=== PATIENT | female | born 1985 | race Caucasian/White ===

== ENCOUNTER 2019-06-27 12:42 | Emergency (ER) | payer OTHER ==
[~2019-06-27] VITALS: Ht 154.9 cm; Wt 67.6 kg
[2019-06-27] MEDS ORDERED: PROTONIX 20 MG20 MG PO (14:05)
[2019-06-27 14:30] LABS: URINE BILIRUBIN NEGATIVE (Negative); URINE BLOOD 2+ (Negative); URINE CLARITY CLOUDY; URINE COLOR YELLOW; URINE GLUCOSE-RANDOM* NEGATIVE (Negative); URINE KETONES NEGATIVE (Negative); URINE LEUKOCYTES-REFLEX NEGATIVE (Negative); URINE NITRITE-REFLEX NEGATIVE (Negative); URINE PROTEIN (DIPSTICK) NEGATIVE (Negative); URINE SPECIFIC GRAVITY 1.025 (1.005-1.035)
[2019-06-27 14:39] LABS: AMORPHOUS URATES Many /LPF (None Seen); CASTS None Seen /LPF (None Seen); SQUAMOUS 0-3 Few /LPF (0-3); URINE RBC 3-10 Few /HPF (0-2); URINE WBC-REFLEX None Seen /HPF (0-5)
[2019-06-27 14:43] LABS: ABSOLUTE NEUTROPHILS 11.9 thou/uL (1.4-8.2); BASOPHILS 0.3 % (0.0-2.0); EOSINOPHILS 0.1 % (0.0-3.0); HEMATOCRIT 40.4 % (37.0-47.0); HEMOGLOBIN 13.2 gm/dL (12.0-15.0); LYMPHOCYTES 8.1 % (24.0-44.0); MCH 28.7 pg (26.0-34.0); MCHC 32.7 g/dL (28.0-37.0); MCV 87.8 fL (80.0-100.0); MONOCYTES 4.9 % (1.0-8.0); PLATELET COUNT 434 thou/uL (150-400); POLYS 86.6 % (36.0-66.0); RDW 13.2 % (10.5-14.5); WBC 13.8 thou/uL (4.0-11.0)
[2019-06-27 14:49] LABS: CREATININE 0.7 mg/dL (0.6-1.0); POTASSIUM 3.4 mmol/L (3.5-5.1)
[2019-06-27 14:56] LABS: ALBUMIN 3.9 g/dL (3.4-5.0); DIRECT BILIRUBIN 0.6 mg/dL (<0.1-0.3)
[2019-06-27] MEDS ORDERED: NORCO 5-325 TA1 EAC1 PO (17:30)
[2019-06-27] MEDS ORDERED: AUGMENTIN 875-1 EACH PO (17:30)
[2019-06-27] MEDS ORDERED: ONDANSETRON ODT8 MG PO (17:30)
[2019-06-27 19:04] VITALS: BP 150/90
[2019-06-28 07:09] LABS: HAV IgM AB (ANTI-HAV IgM) Negative (Negative); HEPATITIS B SURFACE AG Negative (Negative); HEPATITIS C VIRUS AB 0.1 (0.0-0.9)
--- NOTE | 2019-06-28 08:35 | EKG ---
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 : 1985 Requested By: Juan Pablo Jaramillo Order Number: [id number] MD: Layo Rosales Measurements Intervals [place] Rate: 78 P: -25 TX: 147 QRS: -28 QRSD: 98 T: -26 QT: 409 QTc: 466 Interpretive Statements Sinus rhythm Probable left atrial enlargement Borderline left axis deviation Borderline T abnormalities, inferior leads No previous ECG available for comparison Electronically Signed On 06-28-2019 8:35:06 CDT by Layo Rosales [email or web address] <ELECTRONICALLY SIGNED> By: Layo Rosales MD 06/28/19 0835 D: [id number] 50 Layo Rosales MD /MELONIE
== END 2019-06-27 19:05 | disposition home or self-care (01) ==
LOC: ER 12:42
PROVIDERS: Emergency Medicine
DX: K80.10 Calculus of gallbladder with chronic cholecystitis without obstruction (principal); K21.9 Gastro-esophageal reflux disease without esophagitis

== ENCOUNTER 2019-07-14 07:37 | Day surgery (SDC) | payer OTHER ==
[~2019-07-14] VITALS: Ht 154.9 cm; Wt 65.8 kg
[~2019-07-14 07:37] MED LIST: AUGMENTIN 875-1 EACH PO; NORCO 5-325 TA1 EAC1 PO; ONDANSETRON ODT8 MG PO; PROTONIX 20 MG20 MG PO
[2019-07-14 08:53] VITALS: BP 137/93
[2019-07-14] MEDS ORDERED: ZOFRAN 4 MG ORAL4 MG DISSOLVE (10:58)
[2019-07-14] MEDS ORDERED: OXYCODONE HCL 55 MG PO (10:58)
[2019-07-14] MEDS ORDERED: MIRALAX17 GM PO (10:58)
[2019-07-14] MEDS ORDERED: IBUPROFEN 200200 M1 PO (10:58)
[2019-07-14] MEDS ORDERED: COLACE 100 MG100 MG PO (10:58)
[2019-07-14] MEDS ORDERED: ACETAMINOPHEN325 M1 PO (10:58)
[2019-07-14 11:18] VITALS: BP 137/93
--- NOTE | 2019-07-18 17:06 | PATH ---
[facility] [address] [place] [address] PATHOLOGY RPT PROCEDURE Name: ELIZABETH ZELAYA Room #: DEP [facility] M.R.#: [id number] Admission: 07/14/19 Date of : 89 Discharge: 07/14/19 Report #: [id number] Path Case #: [id number] [facility] Accession Number: [id number] . 01 Material submitted: . gallbladder - GALLBLADDER . 01 Clinical history: . Cholecystitis . 02 Diagnosis: Gallbladder, cholecystectomy: - Mild chronic cholecystitis. - Cholelithiasis. (IUV:edgard; 07/18/2019) S 07/18/2019 1251 Local . 02 Electronically signed: . Jess Clifton MD, Pathologist NPI- [id number] . 01 Gross description: . Received in formalin labeled "Parminder, Merryll, gallbladder," is an intact, turgid gallbladder measuring 7.0 x 2.6 x 2.6 cm in greatest dimensions. The serosal surface is smooth to shaggy, pale machuca-lopez to dark green, focally hemorrhagic and partially adipose-covered in appearance. Opening the specimen reveals a gallbladder lumen brimming with tenacious dark green bile and dark lopez multifaceted calculi ranging from 0.1 to 0.9 cm in maximum dimension. The mucosal surface is velvety and dark green in appearance, measuring 0.1 cm in thickness with an average gallbladder wall thickness of 0.1 cm. No polyps or nodules are identified grossly. Engineer Technician sections of the infundibulum, body and fundus are submitted in cassette A1. (DAC; 07/15/2019) XDC/XDC 07/15/2019 0926 Local . 02 Pathologist provided ICD-10: K80.10 . 02 CPT . 405691 Specimen Comment: A courtesy copy of this report has been sent to [phone] Specimen Comment: [phone] Specimen Comment: Report sent to / DR MAN Performed at: 01 [place] [address] PATHOLOGY RPT PROCEDURE Name: ELIZABETH ZELAYA Room #: DEP [facility] M.R.#: [id number] Admission: 07/14/19 Date of : 89 Discharge: 07/14/19 Report #: [id number] Path Case #: [id number] [address] [facility] [address], [place] [id number] MD Nolan Bates MD Phone: [phone] Performed at: [address] [id number] MD Jess Clifton MD Phone: [phone]
== END 2019-07-14 13:05 | disposition home or self-care (01) ==
LOC: OR 07:37 → TBA 07:44 → OR 11:34
DX: K80.10 Calculus of gallbladder with chronic cholecystitis without obstruction (principal); K21.9 Gastro-esophageal reflux disease without esophagitis; Z98.890 Other specified postprocedural states; Z79.899 Other long term (current) drug therapy
CPT/HCPCS: 50010; 50101; 50249; 50411; 50555; 50558; 51489; 52265; 52266; 53307; 53310; 53312; 54022; 54118; 55245; 56462; 56525; 56526; 56674; 62110; 62900; 70005

== ENCOUNTER 2019-07-18 18:53 | Inpatient (IN) | payer OTHER ==
[~2019-07-18] VITALS: Ht 152.4 cm; Wt 64.3 kg
[~2019-07-18 18:53] MED LIST changes: +ACETAMINOPHEN325 M1 PO; +COLACE 100 MG100 MG PO; +IBUPROFEN 200200 M1 PO; +MIRALAX17 GM PO; +OXYCODONE HCL 55 MG PO; +ZOFRAN 4 MG ORAL4 MG DISSOLVE
[2019-07-18 19:10] VITALS: BP 119/85
[2019-07-18 19:28] LABS: URINE BLOOD 3+ (Negative); URINE CLARITY CLEAR; URINE COLOR YELLOW; URINE GLUCOSE-RANDOM* NEGATIVE (Negative); URINE KETONES 2+ (Negative); URINE LEUKOCYTES-REFLEX NEGATIVE (Negative); URINE NITRITE-REFLEX NEGATIVE (Negative); URINE PROTEIN (DIPSTICK) TRACE (Negative)
[2019-07-18 19:29] LABS: ICTOTEST (BILI CONFIRMATORY) Negative (Negative); URINE BILIRUBIN NEGATIVE (Negative)
[2019-07-18 19:39] LABS: BACTERIA-REFLEX 1-9 Few /HPF (None Seen); CASTS None Seen /LPF (None Seen); CRYSTALS None Seen /LPF (None Seen); SQUAMOUS 0-3 Few /LPF (0-3); URINE RBC >20 Many /HPF (0-2); URINE WBC-REFLEX None Seen /HPF (0-5)
[2019-07-18 20:43] LABS: ABSOLUTE NEUTROPHILS 10.4 thou/uL (1.4-8.2); BASOPHILS 0.8 % (0.0-2.0); HEMATOCRIT 37.4 % (37.0-47.0); HEMOGLOBIN 12.2 gm/dL (12.0-15.0); LYMPHOCYTES 13.9 % (24.0-44.0); MCH 28.3 pg (26.0-34.0); MCHC 32.6 g/dL (28.0-37.0); MCV 86.6 fL (80.0-100.0); MONOCYTES 7.5 % (1.0-8.0); PLATELET COUNT 470 thou/uL (150-400); POLYS 76.8 % (36.0-66.0); RBC 4.32 mil/uL (4.20-5.00); RDW 13.4 % (10.5-14.5); WBC 13.5 thou/uL (4.0-11.0)
[2019-07-18 20:49] LABS: CALCIUM 9.6 mg/dL (8.5-10.1); CREATININE 0.7 mg/dL (0.6-1.0)
[2019-07-18 20:55] LABS: ALBUMIN 3.3 g/dL (3.4-5.0); TOTAL BILIRUBIN 1.1 mg/dL (<0.1-1.0); TOTAL PROTEIN 8.1 g/dL (6.4-8.2)
[2019-07-18 22:57] VITALS: BP 133/91
[2019-07-18 23:20] VITALS: BP 153/93
--- NOTE | 2019-07-19 04:25 | NUR ---
PT ADMITTED IN THE UNIT AT 2310 WITH C/O OF ETIENNE ABD RADIATING TO THE LEFT SIDE OF THE BACK AND SHOULDER FROM THE ER.PT IS O/A X4.PT IS UP AD DONYA.PT HAS 4 LAPCHOLE SITES AFTER LAP ROSINA ON THURSDAY.PT HAD NAUSEA WITH NO VOMITING AND ISSUES WITH GAS AND BLOATING AFTER SURGERY.PT IS VERY COORERATIVE.PT NPO FROM MIDNIGHT FOR POSSIBLE TESTING THIS MORNING.PT HAD LOW POTASSIUM IF 3.0 [address] WITH 1BAG OF POTASSIUM 20MEG ONETIME.IV ACCESS ON RAC SL.PT C/O OF PAIN AND DR TODD PAGE X3 WITH NO RETURN AT THIS MOMENT.CONTINUE TO MONITOR TILL EOS
--- NOTE | 2019-07-19 06:42 | NUR ---
PT COMPLAINED OF PAIN THROUGHOUT THE NIGHT.DR TODD PAGED 4TIMES AND REPONDED AT ABOUT 0615 .DR WALLIS PUT IN ORDER FOR PAIN MEDS AND ALSO SAW THE PT.
[2019-07-19 07:44] VITALS: BP 141/88
[2019-07-19 13:59] VITALS: BP 133/90
[2019-07-19 19:19] VITALS: BP 136/99
--- NOTE | 2019-07-19 19:23 | NUR ---
Assumed pt care this am, vs signs stable. HIDA scan done today, toradol on hold due to the contrast. Pain is managed with medication though partial reflief has been noted. Pt is still on clear liquids will progress once pt has a bm. Seen by Dr. Collins Mg Citrate given to promote bm, though nuasea has been noted, relief was acheived when zofran was given. 4 lap sites intact with no drainage. POC followed, monitored and visited often due to pain and nausa. Endorsed to the night nurse. SDC's on
[2019-07-19 23:43] VITALS: BP 131/85
--- NOTE | 2019-07-20 03:37 | NUR ---
PT IS A/O X4.PT IS UP AD DONYA WITH SBA TO BATHROOM.PT C/O OF PAIN AND NAUSEA.PAIN MGT WITH DILAUDID AND OXYCODONE WITH PARTIAL RELIEF.PT HAS 4LAP SITE ALL OK.PT IV ACCESS ON RAC WITH RL AT 125CC/HR.PT LBM ON 07/19/19.CONTINUE POC
[2019-07-20 05:20] LABS: ALBUMIN 2.6 g/dL (3.4-5.0); CALCIUM 8.5 mg/dL (8.5-10.1); CREATININE 0.6 mg/dL (0.6-1.0); MAGNESIUM 1.7 mg/dL (1.8-2.4); POTASSIUM 3.3 mmol/L (3.5-5.1); TOTAL BILIRUBIN 0.9 mg/dL (<0.1-1.0); TOTAL PROTEIN 6.9 g/dL (6.4-8.2)
[2019-07-20 05:31] LABS: HEMATOCRIT 35.2 % (37.0-47.0); HEMOGLOBIN 11.5 gm/dL (12.0-15.0); MCH 28.4 pg (26.0-34.0); MCHC 32.6 g/dL (28.0-37.0); MCV 87.1 fL (80.0-100.0); RBC 4.04 mil/uL (4.20-5.00); RDW 13.3 % (10.5-14.5); WBC 9.8 thou/uL (4.0-11.0)
[2019-07-20 07:40] VITALS: BP 141/99
--- NOTE | 2019-07-20 14:33 | NUR ---
Assumed care of pt at 0700. Pt a&ox4. Up ad oracio. Pain controlled. 3 bowel movements today. Pt states she feels better. IVF infusing. GI called per pt request to see if wanting pt to d/c. Dr Collins will round and see pt before deciding. Report given to oncoming RN at 1300.
[2019-07-20] MEDS ORDERED: IBUPROFEN 200200 M1 PO (17:35)
[2019-07-20 17:44] VITALS: BP 141/99
--- NOTE | 2019-07-20 17:49 | NUR ---
ASSUMED CARE 1300. ALERT X4, DENIES PAIN, ABLE TO EAT REGULAR DIET. BM AFTER EATING. DC HOME WITH SELF CARE. IV REMOVED. DC PAPER WORK REVIEWED. LAP SITES INTACT.
== END 2019-07-20 18:30 | disposition home or self-care (01) | DRG 394 ==
LOC: ER 18:53 → EROBS 22:45 → 4W 22:45
PROVIDERS: Emergency Medicine Emergency Medical Services; Physician Assistant; Surgery; ADMIT Surgery
DX: K91.89 Other postprocedural complications and disorders of digestive system (principal); N39.0 Urinary tract infection, site not specified; R18.8 Other ascites; K56.7 Ileus, unspecified; K21.9 Gastro-esophageal reflux disease without esophagitis; Y83.9 Surgical procedure, unspecified as the cause of abnormal reaction of the patient, or of later complication, without mention of misadventure at the time of the procedure; Z90.49 Acquired absence of other specified parts of digestive tract
CPT/HCPCS: 10040

== ENCOUNTER → 2020-07-02 | Outpatient (CLI) | payer OTHER ==
[2020-07-02 10:42] LABS: URINE BILIRUBIN NEGATIVE (Negative); URINE BLOOD TRACE (Negative); URINE CLARITY CLEAR; URINE COLOR YELLOW; URINE GLUCOSE-RANDOM* NEGATIVE (Negative); URINE KETONES NEGATIVE (Negative); URINE LEUKOCYTES NEGATIVE (Negative); URINE NITRITE NEGATIVE (Negative); URINE PROTEIN (DIPSTICK) NEGATIVE (Negative); URINE SPECIFIC GRAVITY <= 1.005 (1.005-1.035); URINE UROBILINOGEN 0.2 E.U./dl (0.2-1.0)
[2020-07-02 10:45] LABS: ABSOLUTE NEUTROPHILS 4.9 thou/uL (1.4-8.2); BASOPHILS 0.8 % (0.0-2.0); EOSINOPHILS 2.1 % (0.0-3.0); HEMATOCRIT 40.5 % (37.0-47.0); HEMOGLOBIN 13.3 gm/dL (12.0-15.0); LYMPHOCYTES 30.7 % (24.0-44.0); MCH 28.8 pg (26.0-34.0); MCHC 32.9 g/dL (28.0-37.0); MCV 87.6 fL (80.0-100.0); PLATELET COUNT 436 thou/uL (150-400); POLYS 58.4 % (36.0-66.0); RBC 4.62 mil/uL (4.20-5.00); RDW 13.8 % (10.5-14.5); WBC 8.4 thou/uL (4.0-11.0)
[2020-07-02 11:00] LABS: ALBUMIN 3.9 g/dL (3.4-5.0); ANION GAP 10 mmol/L (7-16); BUN 7 mg/dL (7-18); CALCIUM 9.2 mg/dL (8.5-10.1); CHLORIDE 103 mmol/L (98-107); CHOLESTEROL 178 mg/dL (<200); CO2 26 mmol/L (21-32); CREATININE 0.7 mg/dL (0.6-1.0); GLUCOSE 87 mg/dL (74-106); HDL CHOLESTEROL 47 mg/dL (>40); LDL CHOLESTEROL 93 mg/dL (<100); POTASSIUM 3.5 mmol/L (3.5-5.1); SGOT 19 U/L (15-37); SGPT 27 U/L (30-65); SODIUM 139 mmol/L (136-145); TC:HDL 3.8 Ratio (Not establshd); TOTAL BILIRUBIN 0.3 mg/dL (0.2-1.0); TOTAL PROTEIN 8.2 g/dL (6.4-8.2); TRIGLYCERIDE 193 mg/dL (<150); VLDL 39 mg/dL (<40)
[2020-07-03 01:06] LABS: GLYCOHEMOGLOBIN (HGB A1C) 5.1 % (4.8-5.6)
== END ==
LOC: LAB 09:54
PROVIDERS: ATTEND Family Medicine
DX: Z01.419 Encounter for gynecological examination (general) (routine) without abnormal findings (principal)

== ENCOUNTER → 2020-07-20 | Outpatient (CLI) | payer OTHER ==
[2020-07-21 15:07] LABS: HSV 2 IgG <0.91 index (0.00-0.90)
== END ==
LOC: LABMALL 09:55
PROVIDERS: ATTEND Family Medicine
DX: Z20.2 Contact with and (suspected) exposure to infections with a predominantly sexual mode of transmission (principal)

== ENCOUNTER → 2021-07-29 | Outpatient (CLI) | payer OTHER ==
[2021-07-29 09:47] LABS: BASOPHILS 0.7 % (0.0-2.0); EOSINOPHILS 1.7 % (0.0-3.0); HEMATOCRIT 41.5 % (37.0-47.0); LYMPHOCYTES 24.7 % (24.0-44.0); MCH 29.5 pg (26.0-34.0); MCHC 33.9 g/dL (28.0-37.0); MCV 86.9 fL (80.0-100.0); MONOCYTES 7.2 % (1.0-8.0); PLATELET COUNT 448 thou/uL (150-400); POLYS 65.7 % (36.0-66.0); RBC 4.77 mil/uL (4.20-5.00); RDW 13.8 % (10.5-14.5); WBC 7.6 thou/uL (4.0-11.0)
[2021-07-29 09:50] LABS: URINE BILIRUBIN NEGATIVE (Negative); URINE BLOOD 1+ (Negative); URINE CLARITY CLEAR; URINE COLOR YELLOW; URINE GLUCOSE-RANDOM* NEGATIVE (Negative); URINE KETONES NEGATIVE (Negative); URINE LEUKOCYTES-REFLEX NEGATIVE (Negative); URINE NITRITE-REFLEX NEGATIVE (Negative); URINE PROTEIN (DIPSTICK) NEGATIVE (Negative); URINE SPECIFIC GRAVITY <= 1.005 (1.005-1.035); URINE UROBILINOGEN 0.2 E.U./dl (0.2-1.0)
[2021-07-29 10:17] LABS: ALBUMIN 3.8 g/dL (3.4-5.0); ANION GAP 9 mmol/L (7-16); BUN 10 mg/dL (7-18); CHLORIDE 103 mmol/L (98-107); CHOLESTEROL 173 mg/dL (<200); CO2 28 mmol/L (21-32); CREATININE 0.8 mg/dL (0.6-1.0); GLUCOSE 89 mg/dL (74-106); HDL CHOLESTEROL 44 mg/dL (>40); LDL CHOLESTEROL 94 mg/dL (<100); POTASSIUM 3.9 mmol/L (3.5-5.1); SGOT 16 U/L (15-37); SGPT 27 U/L (30-65); SODIUM 140 mmol/L (136-145); TC:HDL 3.9 Ratio (Not establshd); TOTAL BILIRUBIN 0.4 mg/dL (0.2-1.0); TOTAL PROTEIN 8.5 g/dL (6.4-8.2); TRIGLYCERIDE 177 mg/dL (<150); VLDL 35 mg/dL (<40)
[2021-07-29 13:39] LABS: CASTS None Seen /LPF (None Seen); SQUAMOUS 4-10 Moderate /LPF (0-3)
[2021-07-29 13:41] LABS: BACTERIA-REFLEX None Seen /HPF (None Seen); CRYSTALS None Seen /LPF (None Seen); URINE RBC None Seen /HPF (NONE SEEN); URINE WBC-REFLEX None Seen /HPF (0-5)
[2021-07-30 02:06] LABS: GLYCOHEMOGLOBIN (HGB A1C) 5.2 % (4.8-5.6)
== END ==
LOC: LAB 09:00
PROVIDERS: ATTEND Family Medicine
DX: Z00.00 Encounter for general adult medical examination without abnormal findings (principal)